=== PATIENT | female | born 2005 | race Two or more races ===

== ENCOUNTER → 2025-05-04 14:25 | Outpatient (CLI) | payer OTHER | END | disposition home or self-care (01) | LOC: PRENATAL 14:25 | PROVIDERS: ATTEND Obstetrics & Gynecology Maternal & Fetal Medicine | DX: O44.02 Complete placenta previa NOS or without hemorrhage, second trimester (principal); O28.3 Abnormal ultrasonic finding on antenatal screening of mother; Z3A.26 26 weeks gestation of pregnancy ==

== ENCOUNTER 2025-06-16 10:00 | Outpatient (CLI) | payer OTHER | END 2025-06-16 10:02 | disposition home or self-care (01) | LOC: PRENATAL 10:00 | PROVIDERS: ATTEND Obstetrics & Gynecology Maternal & Fetal Medicine | DX: O26.843 Uterine size-date discrepancy, third trimester (principal); O36.8130 Decreased fetal movements, third trimester, not applicable or unspecified; Z3A.32 32 weeks gestation of pregnancy ==